=== PATIENT | female | born 1985 | race Caucasian/White ===

== ENCOUNTER 2017-08-10 11:56 | Inpatient (IN) | payer MEDICAID ==
[2017-08-10] MEDS ORDERED: OXYTOCIN 30 UNITS/LR 500 ML IV ×3 (12:30→18:00)
[2017-08-10] MEDS ORDERED: BUTORPHANOL 2 MG INJ IV (12:30)
[2017-08-10] MEDS ORDERED: METHYLERGONOVINE 0.2 MG INJ IM ×2 (12:30→18:00)
[2017-08-10] MEDS ORDERED: CARBOPROST 250 MCG INJ IM ×2 (12:30→18:00)
[2017-08-10] MEDS ORDERED: MISOPROSTOL 200 MCG TAB PR ×2 (12:30→18:00)
[2017-08-10] MEDS ORDERED: IBUPROFEN 600 MG TAB PO (12:30)
[2017-08-10 12:32] LABS: ADD MAN DIFF? NO
[2017-08-10 12:36] LABS: WHITE BLOOD COUNT 8.2 10^3/ul (4.8-10.8)
[2017-08-10 12:36] LABS: BASOPHILS % 0.2 % (0.0-2.0); EOSINOPHILS # 0.1 10^3/ul (0.0-0.5); HEMATOCRIT 35.8 % (37.0-47.0); HEMOGLOBIN 12.3 g/dl (12.0-16.0); LYMPHOCYTES # 1.7 10^3/ul (0.8-2.9); MEAN CORPUSCULAR HEMOGLOBIN 29.9 pg (29.0-33.0); MEAN CORPUSCULAR HGB CONC 34.4 g/dl (32.0-37.0); MEAN CORPUSCULAR VOLUME 87.1 fl (82.0-101.0); MEAN PLATELET VOLUME 12.5 fl (7.4-10.4); MONOCYTE # 0.4 10^3/ul (0.3-0.9); MONOCYTES % 5.2 % (0.0-11.0); NEUTROPHIL # 5.9 10^3/ul (1.6-7.5); NEUTROPHILS % 72.1 % (39.0-77.0); PLATELET COUNT 185 10^3/UL (140-415); RED BLOOD COUNT 4.11 10^6/ul (4.20-5.40); RED CELL DISTRIBUTION WIDTH 13.2 % (11.5-14.5)
[2017-08-10] MEDS: LACTATED RINGER'S 1,000 ML IV (12:53)
[2017-08-10 12:55] LABS: INR 0.82; PROTIME 11.3 Sec (11.9-14.9); PT RATIO 0.9
[2017-08-10 12:56] LABS: PARTIAL THROMBOPLASTIN TIME 26.3 Sec (25.0-35.0)
[2017-08-10 13:00] LABS: RUPTURE FETAL MEMBRANES POSITIVE (NEGATIVE)
[2017-08-10] MEDS: OXYTOCIN 30 UNITS/LR 500 ML IV ×2 (13:58→16:42)
[2017-08-10] MEDS: LIDOCAINE 1% (MPF) 30 ML INJ INJ (16:13)
[2017-08-10 16:47] LABS: RAPID PLASMA REAGIN NONREACTIVE (NR)
[2017-08-10] MEDS: LACTATED RINGER'S 1,000 ML IV* ×2 (17:37→20:47)
[2017-08-10] MEDS ORDERED: LANOLIN 7 GM TUBE TOP (18:00)
[2017-08-10] MEDS ORDERED: HYDROCODONE/APAP (5/325) TAB PO ×2 (18:00)
[2017-08-10] MEDS ORDERED: DIBUCAINE 1% 30 GM OINT PR (18:00)
[2017-08-10] MEDS ORDERED: WITCH HAZEL/GLYCERIN PAD PR (18:00)
[2017-08-10] MEDS ORDERED: ZOLPIDEM 5 MG TAB PO (18:00)
[2017-08-10] MEDS: IBUPROFEN 600 MG TAB PO ×2 (18:23→23:37)
[2017-08-10 20:08] LABS: HEPATITIS B SURFACE ANTIGEN NEGATIVE (NEGATIVE)
[2017-08-10] MEDS: MAGNESIUM HYDROXIDE 30ML CUP PO (20:40)
[2017-08-10] MEDS: SENNA/DOCUSATE NA (8.6MG/50MG) TAB PO (20:40)
[2017-08-10] MEDS: BENZOCAINE 20% 56 ML SPRAY TOP (23:37)
[2017-08-11] MEDS: IBUPROFEN 600 MG TAB PO ×3 (05:41→17:43)
[2017-08-11] MEDS: MAGNESIUM HYDROXIDE 30ML CUP PO ×2 (09:01→21:29)
[2017-08-11] MEDS: SENNA/DOCUSATE NA (8.6MG/50MG) TAB PO ×2 (09:01→21:29)
[2017-08-11] MEDS: LACTATED RINGER'S 1,000 ML IV* ×2 (09:37→17:37)
[2017-08-11 11:45] LABS: ADD MAN DIFF? NO
[2017-08-11 12:12] LABS: WHITE BLOOD COUNT 8.7 10^3/ul (4.8-10.8)
[2017-08-11 12:12] LABS: BASOPHILS % 0.3 % (0.0-2.0); EOSINOPHILS # 0.1 10^3/ul (0.0-0.5); EOSINOPHILS % 0.7 % (0.0-7.0); HEMATOCRIT 31.1 % (37.0-47.0); HEMOGLOBIN 10.7 g/dl (12.0-16.0); LYMPHOCYTES # 1.6 10^3/ul (0.8-2.9); LYMPHOCYTES % 18.9 % (15.0-51.0); MEAN CORPUSCULAR HEMOGLOBIN 30.1 pg (29.0-33.0); MEAN CORPUSCULAR HGB CONC 34.4 g/dl (32.0-37.0); MEAN CORPUSCULAR VOLUME 87.6 fl (82.0-101.0); MEAN PLATELET VOLUME 12.4 fl (7.4-10.4); MONOCYTE # 0.4 10^3/ul (0.3-0.9); MONOCYTES % 4.4 % (0.0-11.0); NEUTROPHIL # 6.5 10^3/ul (1.6-7.5); NEUTROPHILS % 75.1 % (39.0-77.0); PLATELET COUNT 166 10^3/UL (140-415); RED BLOOD COUNT 3.55 10^6/ul (4.20-5.40); RED CELL DISTRIBUTION WIDTH 13.5 % (11.5-14.5)
[2017-08-12] MEDS: IBUPROFEN 600 MG TAB PO ×3 (00:17→11:51)
[2017-08-12] MEDS: DIPHTH/TET/ACEL PERTUSS (ADULT) 0.5 ML VIAL IM* (08:26)
[2017-08-12] MEDS: MAGNESIUM HYDROXIDE 30ML CUP PO (08:27)
[2017-08-12] MEDS: SENNA/DOCUSATE NA (8.6MG/50MG) TAB PO (08:27)
[2017-08-12] MEDS: VARICELLA VACCINE LIVE/PF 1,350 UNIT/0.5 ML ML SC* (08:28)
[2017-08-12] MEDS: MEASLES,MUMPS,RUBELLA VACCINE INJ SC* (08:28)
== END 2017-08-12 14:10 | disposition home or self-care (01) | DRG 775 ==
LOC: OBT 11:56 → L-D 11:58 → OBT 11:58 → L-D 12:02 → PP1 17:34
PROVIDERS: Obstetrics & Gynecology
PROC: 10E0XZZ Delivery of Products of Conception, External Approach (ICD-10-PCS; principal; 2017-08-10)
PROC: 0HQ9XZZ Repair Perineum Skin, External Approach (ICD-10-PCS; 2017-08-10)
DX: O70.9 Perineal laceration during delivery, unspecified (principal); Z37.0 Single live birth; Z3A.39 39 weeks gestation of pregnancy
CPT/HCPCS: 76815; 84112; 85025; 85610; 85730; 86592; 86900; 86901; 87340; 90715; 90716; 99464